=== PATIENT | male | born 1940 | race Caucasian/White ===

== ENCOUNTER 2021-09-01 11:38 | Inpatient (IN) | payer MEDICARE ==
[~2021-09-01] VITALS: Ht 175.3 cm; Wt 65.1 kg
[2021-09-01 13:50] LABS: Potassium 3.8 mmol/L (3.5-5.1)
[2021-09-01 13:52] LABS: Basophils # (auto) 0 10 ^3/uL (0-0.2); Basophils % (auto) 0.3 % (0.0-2.0); Eosinophils # (auto) 0.1 10 ^3/uL (0-0.8); Eosinophils % (auto) 1.3 % (0.0-7.0); Hematocrit 36.9 % (41.0-53.0); Hemoglobin 12.1 g/dL (13.5-17.5); Lymphocytes # (auto) 0.3 10 ^3/uL (0.4-5.4); Lymphocytes % (auto) 3.4 % (10.0-50.0); Mean Corpuscular Hemoglobin 29.1 pg (28.0-32.0); Mean Corpuscular Hgb Conc. 32.7 g/dL (32.0-36.0); Monocytes # (auto) 0.6 10 ^3/uL (0-1.3); Monocytes % (auto) 6.7 % (0.0-12.0); Neutrophils # (auto) 7.8 10 ^3/uL (1.6-8.6); Neutrophils % (auto) 88.3 % (37.0-80.0); Red Blood Cells 4.15 10^6/uL (4.5-5.90); Red Cell Distribution Width 15.7 % (11.8-14.3); White Blood Cell 8.9 10^3/uL (4.4-10.8)
[2021-09-01 13:59] LABS: Albumin 3.3 g/dL (3.4-5.0); BUN/Creatinine Ratio 20.5; Bilirubin, Total 1.8 mg/dL (0.2-1.0); Calcium 8.7 mg/dL (8.5-10.1); Total Protein 7.2 g/dL (6.4-8.2)
[2021-09-01] MEDS ORDERED: NITROGLYCERIN 0.4 MG SL TAB SL PRN (14:45)
[2021-09-01] MEDS ORDERED: ASPirin 81 mg TAB PO ONE (14:45)
[2021-09-01] MEDS ORDERED: MORPHINE SULFATE INJECTION 2 MG/ML SYRG IV PRN ×2 (14:45→17:00)
[2021-09-01] MEDS ORDERED: ENOXAPARIN SOD 80 MG/0.8ML SYRINGE SC ONE (14:45)
[2021-09-01] MEDS ORDERED: IOHEXOL 350 MG/ML 100ML IJ ONE (15:08)
[2021-09-01] MEDS: SODIUM CHLORIDE 0.9% 1,000 ML IV SCH ×2 (16:07→16:08)
[2021-09-01] MEDS ORDERED: BENAZEPRIL HCL 10 MG TAB PO ONE (17:00)
[2021-09-01] MEDS ORDERED: FUROSEMIDE 40 MG/4 ML VIAL IV ONE (17:00)
[2021-09-01] MEDS ORDERED: ACETAMINOPHEN 325 MG TAB PO PRN (17:00)
[2021-09-01] MEDS ORDERED: ONDANSETRON HCL 4 MG/2 ML VIAL IV PRN (17:00)
[2021-09-01] MEDS ORDERED: IPRATROPIUM BROM 0.5 MG/2.5ML INH SOL NEB ONE (17:00)
[2021-09-01] MEDS ORDERED: MONTELUKAST SODIUM 10 MG TAB PO ONE (17:00)
[2021-09-01] MEDS ORDERED: LACTULOSE 20Gm/30ML SOLN PO PRN (17:00)
[2021-09-01] MEDS ORDERED: hydrALAZINE HCL 20 MG/ML VL IV PRN (17:00)
[2021-09-01] MEDS ORDERED: DOCUSATE SOD 100 MG CAP PO PRN (17:00)
[2021-09-01] MEDS ORDERED: LORazepam 0.5 MG TAB PO PRN (17:00)
[2021-09-01] MEDS ORDERED: FOLIC ACID 1 MG TAB PO ONE (17:00)
[2021-09-01] MEDS ORDERED: PANTOPRAZOLE 40 MG/10 ML VIAL INJ IV ONE (17:00)
[2021-09-01] MEDS ORDERED: MULTIPLE VITAMINS W/ MINERALS TAB PO ONE (17:00)
[2021-09-01] MEDS ORDERED: METOPROLOL SUCCINATE XL 50 MG TAB PO ONE (17:00)
[2021-09-01] MEDS ORDERED: BUDESONIDE (INHALATION) 0.5 MG/2 ML NEB NEB ONE (17:00)
[2021-09-01] MEDS ORDERED: SUCRALFATE 1 GM/10 ML ORAL SUSP PO ONE (17:00)
[2021-09-01] MEDS ORDERED: IPRATROPIUM BROM 0.5 MG/2.5ML INH SOL NEB PRN (17:30)
[2021-09-01 17:42] LABS: Cholesterol 106 mg/dL (< 200)
[2021-09-01 17:45] LABS: HDL Cholesterol 38 mg/dL (40-59); LDL Cholesterol 68 mg/dL (< 100); Triglycerides 58 mg/dL (< 150)
[2021-09-01] MEDS ORDERED: DOXYCYCLINE 100MG/250ML 250 ML IV ONE (18:45)
[2021-09-01] MEDS: CALCIUM W/VIT D (600MG/400IU) TAB PO SCH (18:52)
[2021-09-01] MEDS: RIVAROXABAN 15 MG TAB PO SCH (18:53)
[2021-09-01 20:59] LABS: INR 2.09 (0.9-1.15); Partial Thromboplastin Time 58.3 sec (23.6-33.0)
[2021-09-01 21:10] LABS: Magnesium 2.5 mg/dL (1.6-2.6); Phosphorus 3.9 mg/dL (2.5-4.90)
[2021-09-01] MEDS: MAGNESIUM OXIDE 400 MG TAB PO SCH (21:36)
[2021-09-01] MEDS: SUCRALFATE 1 GM/10 ML ORAL SUSP PO SCH (21:36)
[2021-09-01] MEDS: ATORVASTATIN 20 MG TAB PO SCH (21:36)
[2021-09-01] MEDS: POTASSIUM CHL 20 Meq TABLET PO SCH (21:36)
[2021-09-01] MEDS: HYDROcodone-ACET 5/325MG TAB PO PRN (21:43)
[2021-09-01 22:00] VITALS: BP 94/54
[2021-09-01] MEDS ORDERED: ACETYLCYSTEINE 10 %(100MG/ML) SOL 4ML NEB SCH (22:00)
[2021-09-01] MEDS ORDERED: IPRATROPIUM BROM 0.5 MG/2.5ML INH SOL NEB SCH (22:00)
[2021-09-01] MEDS: BUDESONIDE (INHALATION) 0.5 MG/2 ML NEB NEB SCH (22:38)
[2021-09-02 01:47] VITALS: BP 94/54
[2021-09-02 05:00] VITALS: BP 90/49
[2021-09-02] MEDS: FUROSEMIDE 40 MG/4 ML VIAL IV SCH ×2 (06:00→17:27)
[2021-09-02] MEDS: SUCRALFATE 1 GM/10 ML ORAL SUSP PO SCH ×4 (06:10→21:01)
[2021-09-02 07:07] LABS: Basophils # (auto) 0 10 ^3/uL (0-0.2); Basophils % (auto) 0.6 % (0.0-2.0); Eosinophils # (auto) 0.5 10 ^3/uL (0-0.8); Eosinophils % (auto) 8.3 % (0.0-7.0); Hematocrit 32.3 % (41.0-53.0); Hemoglobin 10.6 g/dL (13.5-17.5); Lymphocytes # (auto) 0.6 10 ^3/uL (0.4-5.4); Lymphocytes % (auto) 11.3 % (10.0-50.0); Mean Corpuscular Hemoglobin 29.3 pg (28.0-32.0); Mean Corpuscular Hgb Conc. 32.9 g/dL (32.0-36.0); Monocytes # (auto) 0.5 10 ^3/uL (0-1.3); Monocytes % (auto) 9.6 % (0.0-12.0); Neutrophils # (auto) 3.9 10 ^3/uL (1.6-8.6); Neutrophils % (auto) 70.2 % (37.0-80.0); Nucleated Red Blood Cells % 0.1 %; Red Blood Cells 3.63 10^6/uL (4.5-5.90); Red Cell Distribution Width 16.2 % (11.8-14.3); White Blood Cell 5.6 10^3/uL (4.4-10.8)
[2021-09-02 07:10] LABS: Albumin 2.9 g/dL (3.4-5.0); Calcium 8.6 mg/dL (8.5-10.1); INR 2.12 (0.9-1.15); Magnesium 2.5 mg/dL (1.6-2.6); Partial Thromboplastin Time 54.4 sec (23.6-33.0); Potassium 4.1 mmol/L (3.5-5.1)
[2021-09-02 07:19] LABS: BUN/Creatinine Ratio 25.2; Phosphorus 3.6 mg/dL (2.5-4.90); Total Protein 6.3 g/dL (6.4-8.2); Uric Acid 6.3 mg/dL (3.5-7.2)
[2021-09-02] MEDS: BUDESONIDE (INHALATION) 0.5 MG/2 ML NEB NEB SCH ×2 (07:35→21:44)
[2021-09-02] MEDS: SODIUM CHLORIDE 0.9% 1,000 ML IV SCH (07:40)
[2021-09-02] MEDS: CALCIUM W/VIT D (600MG/400IU) TAB PO SCH ×2 (08:00→17:28)
[2021-09-02 09:00] VITALS: BP 109/68
[2021-09-02] MEDS: POTASSIUM CHL 20 Meq TABLET PO SCH ×2 (10:00→21:01)
[2021-09-02] MEDS: PANTOPRAZOLE 40 MG/10 ML VIAL INJ IV SCH (10:00)
[2021-09-02] MEDS: ALLOPURINOL 100 MG TAB PO SCH (10:00)
[2021-09-02] MEDS: MAGNESIUM OXIDE 400 MG TAB PO SCH ×2 (10:00→21:02)
[2021-09-02] MEDS: CYANOCOBALAMIN 500 MCG TAB PO SCH (10:00)
[2021-09-02] MEDS: MULTIPLE VITAMINS W/ MINERALS TAB PO SCH (10:00)
[2021-09-02] MEDS ORDERED: METOPROLOL SUCCINATE XL 50 MG TAB PO SCH (10:00)
[2021-09-02] MEDS: DOXYCYCLINE 100MG/250ML 250 ML IV SCH ×2 (10:00→21:00)
[2021-09-02] MEDS: ASPirin 81 mg TAB PO SCH (10:00)
[2021-09-02] MEDS: FOLIC ACID 1 MG TAB PO SCH (10:00)
[2021-09-02] MEDS: CHOLECALCIFEROL (VITD3) 2,000 UNIT CAP/TAB PO SCH (10:00)
[2021-09-02] MEDS: THIAMINE HCL 100 MG TAB PO SCH (10:00)
[2021-09-02] MEDS ORDERED: BENAZEPRIL HCL 10 MG TAB PO SCH (10:00)
[2021-09-02] MEDS: Ensure HIGH Protein Chocolate 8oz Bottle PO SCH ×2 (12:00→17:28)
[2021-09-02 13:00] VITALS: BP 110/75
[2021-09-02 17:00] VITALS: BP 116/58
[2021-09-02] MEDS: RIVAROXABAN 15 MG TAB PO SCH (17:28)
[2021-09-02] MEDS: HYDROcodone-ACET 5/325MG TAB PO PRN (20:51)
[2021-09-02] MEDS: ATORVASTATIN 20 MG TAB PO SCH (21:02)
[2021-09-02 22:00] VITALS: BP 127/68
[2021-09-02] MEDS ORDERED: MONTELUKAST SODIUM 10 MG TAB PO SCH (22:00)
[2021-09-02] MEDS ORDERED: ZOLPIDEM TARTRATE 5 MG TAB PO PRN (22:15)
[2021-09-03] MEDS: SODIUM CHLORIDE 0.9% 1,000 ML IV SCH (01:18)
[2021-09-03 05:00] VITALS: BP 111/61
[2021-09-03] MEDS: FUROSEMIDE 40 MG/4 ML VIAL IV SCH (05:49)
[2021-09-03] MEDS: SUCRALFATE 1 GM/10 ML ORAL SUSP PO SCH ×2 (05:56→11:50)
[2021-09-03 06:09] LABS: BUN/Creatinine Ratio 39.1; Calcium 8.9 mg/dL (8.5-10.1)
[2021-09-03] MEDS: Ensure HIGH Protein Chocolate 8oz Bottle PO SCH ×2 (07:56→11:51)
[2021-09-03] MEDS: HYDROcodone-ACET 5/325MG TAB PO PRN (07:56)
[2021-09-03] MEDS: CALCIUM W/VIT D (600MG/400IU) TAB PO SCH (07:56)
[2021-09-03 09:00] VITALS: BP 122/47
[2021-09-03] MEDS ORDERED: HYDR-4798 PO ×2 (09:43→09:44)
[2021-09-03] MEDS ORDERED: ZOLP10TA6 PO (09:43)
[2021-09-03] MEDS ORDERED: POTA8TAB2 PO (09:43)
[2021-09-03] MEDS ORDERED: CHOL500013 PO (09:43)
[2021-09-03] MEDS ORDERED: ALLO100T PO (09:43)
[2021-09-03] MEDS ORDERED: MAGN241.4 PO (09:43)
[2021-09-03] MEDS ORDERED: DOXY100T2 PO (09:43)
[2021-09-03] MEDS ORDERED: FURO40TA4 PO (09:43)
[2021-09-03] MEDS ORDERED: CARV3.1240 PO (09:43)
[2021-09-03] MEDS: CYANOCOBALAMIN 500 MCG TAB PO SCH (10:00)
[2021-09-03] MEDS: ASPirin 81 mg TAB PO SCH (10:00)
[2021-09-03] MEDS: THIAMINE HCL 100 MG TAB PO SCH (10:18)
[2021-09-03] MEDS: CHOLECALCIFEROL (VITD3) 2,000 UNIT CAP/TAB PO SCH (10:18)
[2021-09-03] MEDS: MULTIPLE VITAMINS W/ MINERALS TAB PO SCH (10:18)
[2021-09-03] MEDS: MAGNESIUM OXIDE 400 MG TAB PO SCH (10:19)
[2021-09-03] MEDS: POTASSIUM CHL 20 Meq TABLET PO SCH (10:20)
[2021-09-03] MEDS: ALLOPURINOL 100 MG TAB PO SCH (10:20)
[2021-09-03] MEDS: FOLIC ACID 1 MG TAB PO SCH (10:21)
[2021-09-03] MEDS: PANTOPRAZOLE 40 MG/10 ML VIAL INJ IV SCH (10:21)
[2021-09-03] MEDS: DOXYCYCLINE 100MG/250ML 250 ML IV SCH (10:22)
[2021-09-03 12:10] VITALS: BP 93/58
[2021-09-03 13:00] VITALS: BP 114/47
== END 2021-09-03 15:30 | disposition home health service (06) | DRG 280 ==
LOC: ER 11:38 → EDBD 11:38 → TELE 14:38 → TELE-WESTW 17:53
PROVIDERS: ADMIT Hospitalist; ATTEND Family Medicine
DX: I21.4 Non-ST elevation (NSTEMI) myocardial infarction (principal); I50.43 Acute on chronic combined systolic (congestive) and diastolic (congestive) heart failure; J84.9 Interstitial pulmonary disease, unspecified; I48.19 Other persistent atrial fibrillation; E44.0 Moderate protein-calorie malnutrition; F11.20 Opioid dependence, uncomplicated; G89.4 Chronic pain syndrome; I11.0 Hypertensive heart disease with heart failure; D64.9 Anemia, unspecified; I25.5 Ischemic cardiomyopathy; Z20.822 Contact with and (suspected) exposure to COVID-19; E78.5 Hyperlipidemia, unspecified; E78.00 Pure hypercholesterolemia, unspecified; F17.200 Nicotine dependence, unspecified, uncomplicated; I25.10 Atherosclerotic heart disease of native coronary artery without angina pectoris; K21.9 Gastro-esophageal reflux disease without esophagitis; M1A.9XX0 Chronic gout, unspecified, without tophus (tophi); R29.6 Repeated falls; Z79.01 Long term (current) use of anticoagulants; Z91.81 History of falling; Z95.1 Presence of aortocoronary bypass graft; Z71.6 Tobacco abuse counseling; Z95.810 Presence of automatic (implantable) cardiac defibrillator; Z68.21 Body mass index [BMI] 21.0-21.9, adult; Z87.01 Personal history of pneumonia (recurrent); I65.23 Occlusion and stenosis of bilateral carotid arteries
CPT/HCPCS: 36415; 70450; 71045; 71275; 73502; 80048; 80053; 80061; 82728; 83036; 83735; 83880; 84100; 84443; 84484; 84550; 85025; 85379; 85610; 85652; 85730; 87040; 93005; 93306; 93886; 93970; 94640; 96361; 96372; 96374; C9113; G0378; J2405; J3490